=== PATIENT | female | born 1995 | race Caucasian/White ===

== ENCOUNTER 2017-03-27 00:53 | Emergency (ER) | payer OTHER ==
[2017-03-27 01:02] VITALS: BP 105/70
[2017-03-27] MEDS ORDERED: Lidocaine 1%* 5 ML VIAL ONE (02:20)
--- NOTE | 2017-03-27 02:37 | ED ---
Laceration/Wound HPI - HPI Summary HPI Summary: 21F presents with left thumb laceration 5 hours ago. She cut her left thumb on a knife while cutting an onion. The area continued to bleed for a long time. She denies any numbness or tingling. She had a throbbing pain. She did not take anything for pain. Her tetanus is up to date. She is right handed - History of Current Complaint Stated Complaint: LT THUMB LAC Time Seen by Provider: 03/27/17 02:14 Pain Intensity: 2 - Allergy/Home Medications Allergies/Adverse Reactions: Allergies Allergy/AdvReac Type Severity Reaction Status Date / Time Sulfamethoxazole Allergy Rash Verified 03/27/17 01:02 w/Trimethoprim [From Bactrim] PMH/Surg Hx/FS Hx/Imm Hx Endocrine/Hematology History: Denies: Hx Anticoagulant Therapy Cardiovascular History: Denies: Hx Hypertension Infectious Disease History: Denies: Traveled Outside the [place] in Last 30 Days - Family History Known Family History: Negative: Cardiac Disease - Social History Alcohol Use: None Substance Use Type: Reports: None Smoking Status (MU): Never Smoked Tobacco Review of Systems Negative: Fever Negative: Chest Pain Negative: Shortness Of Breath Positive: Other - left thumb laceration All Other Systems Reviewed And Are Negative: Yes Physical Exam Triage Information Reviewed: Yes Vital Signs On Initial Exam: Initial Vitals Temp Pulse Resp BP Pulse Ox 97.6 F 50 16 105/70 100 03/27/17 00:55 03/27/17 00:55 03/27/17 00:55 03/27/17 00:55 03/27/17 00:55 Vital Signs Reviewed: Yes Appearance: Positive: Well-Appearing Skin: Positive: Warm, Dry, Other - 1cm superficial laceration of left thumb near tip of nail Head/Face: Positive: Normal Head/Face Inspection Eyes: Positive: Normal, Conjunctiva Clear Respiratory/Lung Sounds: Positive: Clear to Auscultation, Breath Sounds Present Cardiovascular: Positive: Normal, RRR Musculoskeletal: Positive: Strength/ROM Intact - left thumb, Other - good pulses , capillary refill<2 secs Neurological: Positive: Normal Psychiatric: Positive: Normal Procedures - Laceration/Wound Repair 1 Location: Other - left thumb Description: Linear Length, Depth and Shape: 1cm superficial Irrigated w/ Saline (ccs): 500 Closure: Skin Adhesive, SteriStrips Diagnostics - Vital Signs Vital Signs Temp Pulse Resp BP Pulse Ox 03/27/17 00:55 97.6 F 50 16 105/70 100 - Laboratory Lab Statement: Any lab studies that have been ordered have been reviewed, and results considered in the medical decision making process. Laceration Repair Course/Dx - Course Course Of Treatment: 21F presents with finger laceration 5 hours ago. She cut her left thumb on a knife while cutting an onion. The area continued to bleed for a long time. She denies any numbness or tingling. She had a throbbing pain. She did not take anything for pain. Her tetanus is up to date. on exam has 1cm laceration near tip of finger. placed glue and steristrip. patient understands and agrees with plan. - Differential Dx Differental Diagnoses: Abrasion, Avulsion, Laceration - Clinical Impression Provider Diagnoses: Laceration of left thumb Discharge - Discharge Plan Condition: Good Disposition: HOME Patient Education Materials: Skin Adhesive Care (ED) [facility] - Additional Instructions: Place ice on area Take Tylenol for pain as needed every 6 hours Glue will fall off on own Avoid scrubbing area Use sunscreen on area after laceration has healed Return to ED if develop any signs of infection or any new or worsening symptoms
== END 2017-03-27 02:50 | disposition home or self-care (01) ==
LOC: ED 00:53
DX: S61.012A Laceration without foreign body of left thumb without damage to nail, initial encounter (principal); W26.0XXA Contact with knife, initial encounter; Y93.G1 Activity, food preparation and clean up; Y92.9 Unspecified place or not applicable
CPT/HCPCS: 99282